=== PATIENT | male | born 1960 ===

== ENCOUNTER 2022-11-08 07:37 | Outpatient (REF) | payer BC, OTHER, SELFPAY ==
[2022-11-08 07:51] LABS: Hematocrit 43.6 % (42.0-52.0); Hemoglobin 14.7 g/dl (14.0-18.0); Mean Corpuscular HGB Conc 33.7 g/dl (31.0-36.0); Mean Corpuscular Hemoglobin 29.5 pg (27.0-33.0); Mean Corpuscular Volume 87.4 fL (80.0-98.0); Mean Platelet Volume 9.1 fL (9.4-12.4); Platelet Count 190 X10*3/uL (160-400); Red Blood Count 4.99 X10*6/uL (4.60-5.80); Red Cell Distribution Width 13.2 % (11.0-16.0); White Blood Count 6.3 X10*3/uL (4.8-10.8)
[2022-11-08 08:26] LABS: Alanine Aminotransferase 23 U/L (0-40); Albumin Level 4.3 g/dL (3.5-5.0); Alkaline Phosphatase 76 U/L (39-117); Anion Gap 11 (12-20); Aspartate Amino Transferase 18 U/L (5-37); Bilirubin Direct 0.2 mg/dL (0.0-0.5); Bilirubin Total 0.8 mg/dL (0.0-1.0); Blood Urea Nitrogen 17 mg/dL (9-16); Calcium 9.4 mg/dL (8.4-10.2); Carbon Dioxide 26 mmol/L (22-29); Chloride 109 mmol/L (96-108); Cholesterol 186 mg/dL; Estimated Glomerular Filt Rate > 60; Glucose Random 118 mg/dL (60-115); HDL Cholesterol 44 mg/dL; LDL Cholesterol Calculated 115 mg/dl; Potassium 5.4 mmol/L (3.3-5.1); Sodium 141 mmol/L (135-145); Total Protein 6.3 g/dL (6.5-8.0); Triglycerides 138 mg/dL
[2022-11-08 08:43] LABS: Thyroid Stimulating Hormone 0.63 uIU/mL (0.32-4.0)
[2022-11-08 08:52] LABS: Appearance Urine Clear; Color Urine Yellow; Glucose Urine UA Negative (Negative); Leukocyte Esterase Urine Negative (Negative); Nitrite Urine Negative (Negative); PH 5.5 (5.0-9.0); Specific Gravity - Urine 1.015 (1.005-1.025); Urine Blood Negative (Negative); Urine Ketones Negative (Negative); Urine Protein Negative (Neg-Trace)
== END 2022-11-08 07:38 | disposition home or self-care (01) ==
LOC: HO.LAB 07:37
PROVIDERS: PCP Internal Medicine; Visit Provider Internal Medicine
DX: Z00.00 Encounter for general adult medical examination without abnormal findings (principal); I10 Essential (primary) hypertension; E78.01 Familial hypercholesterolemia
CPT/HCPCS: 36415; 80048; 80061; 80076; 81003; 84443; 85027

== ENCOUNTER 2023-06-05 09:02 | Outpatient (AMB) | payer BC, OTHER, SELFPAY ==
--- NOTE | 2023-06-05 09:07 | MHC.PC.OV ---
Vital Signs 06/05/23 09:09 Height 5 ft 8 in Weight 226 lb 4 oz BMI 34.4 BP 130/80 Blood Pressure Location Lt brachial Position Sitting Pulse 77 Pulse Source Pulse Oximeter Pulse Oximetry (%) 95 Oxygen Delivery Method Room Air Intake Visit Reasons: 6mth f/u Intake Note: Patient is here to follow up on HTN, Hypercholesterolemia. Press Catcher Required: No Cloth Shearing Supervisor: Not Required per policy Accompanied by: Self / Same As Patient Allergies No Known Allergies [No Known Allergies*] Allergy (Verified 06/08/23 11:56) Medication List - Last Reconciled 06/08/23 by Jorge Yung MD lisinopril 20 mg PO DAILY simvastatin 20 mg PO DAILY Tobacco use date assessed: 06/05/23 Fall risk assessment: No Falls in past year Last assessed Fall Risk: 06/05/23 Dental Screening Dental Screen Date: 06/05/23 Did you have a dental visit in the last 12 months?: Yes Did you have a dental problem in the last 6 months where you did not have access to dental care?: No Was dental information given to patient?: Patient has dentist HPI 6mth f/u HPI Details 62-year-old male presents to the office to discuss his chronic medical conditions. Patient is at baseline state of health. Able to function and do all activities of daily living. Compliant with medications and reporting no side effects. Does not check blood pressures at home [facility] Medical History Familial hypercholesterolemia Essential hypertension Surgical History History of hernia repair Social History Housing: House Alcohol intake: current Alcohol intake frequency: holidays/special occasions only Alcohol type: beer Patient Tobacco Use Status: Former Tobacco user e-Cigarette/Vaping Use: Never Used Second Hand Smoke Exposure: No service: Yes Current occupational status: employed Current occupation: [employer] Cognitive needs: No Hearing needs: No Vision needs: Yes (Glasses) Questionnaire Thrive Questionnaire Date Thrive assessed: 11/07/22 TAY-7 AMB Questionnaire TAY-7 Date TAY - 7 assessed: 11/07/22 Source: Developed by Drs. Juarez Ureña, Brina Shi, Edwin Bob and colleagues, with an educational emmy from [employer]. Physical exam (Primary Care) Vital Signs: Last Vital Signs Pulse 77 06/05/23 09:09 BP 130/80 06/05/23 09:09 Pulse Ox 95 06/05/23 09:09 Oxygen Delivery Method Room Air 06/05/23 09:09 Care Plan Goal for BP management: Blood pressure is in range. Continue current medications BMI result Body Mass Index 34.4 Tobacco/Smoking Status: Tobacco use Status Tobacco use date assessed 06/05/23 06/05/23 09:13 Patient Tobacco Use Status Former Tobacco user 06/05/23 09:13 e-Cigarette/Vaping Use Never Used 06/05/23 09:13 Thrive Assessment: Date of Thrive Assessment Date Thrive assessed 11/07/22 06/05/23 09:13 Const General: cooperative and healthy appearing Nutritional Appearance: well nourished Orientation/consciousness: patient oriented x3 Limitations: no limitations HENMT Head: Yes normal to inspection Eyes General: appearance normal, both eyes and all related structures Neck Neck: Yes normal visual inspection Chest Chest palpation & inspection: normal palpation of entire chest wall Resp Effort & Inspection: normal respiratory effort Neuro General: patient oriented x3 Assessment and Plan Assessment & Plan (1) Familial hypercholesterolemia: Code(s): E78.01 - Familial hypercholesterolemia Plan: Blood work ordered. Continue medications at same dosage (2) Essential hypertension: Code(s): I10 - Essential (primary) hypertension Plan: Continue medications at same dosage. Compliant with diet and exercise urged. Orders: Orders Basic Metabolic Panel 06/05/23 E78.01 - Familial hypercholesterolemia, I10 - Essential (primary) hypertension Liver Panel 06/05/23 E78.01 - Familial hypercholesterolemia, I10 - Essential (primary) hypertension Complete Blood Count no Diff 06/05/23 E78.01 - Familial hypercholesterolemia, I10 - Essential (primary) hypertension Lipid Panel 06/05/23 E78.01 - Familial hypercholesterolemia, I10 - Essential (primary) hypertension Thyroid Stimulating Hormone 06/05/23 E78.01 - Familial hypercholesterolemia, I10 - Essential (primary) hypertension Erythrocyte Sedimentation Rate 06/05/23 E78.01 - Familial hypercholesterolemia, I10 - Essential (primary) hypertension Coding Level of Care Code Est Pt Level 4 (91382) Diagnoses Familial hypercholesterolemia E78.01 Essential hypertension I10
[2023-06-05 09:09] VITALS: BP 130/80; PULSE 77; O2SAT 95; BMI 34.4
== END 2023-06-05 10:03 | disposition home or self-care (01) ==
PROVIDERS: Visit Provider Internal Medicine
DX: E78.01 Familial hypercholesterolemia (principal); I10 Essential (primary) hypertension
CPT/HCPCS: 99214

== ENCOUNTER 2023-11-13 07:12 | Outpatient (REF) | payer MEDICARE, BC, OTHER, SELFPAY ==
[2023-11-13 08:09] LABS: Hematocrit 46.5 % (42.0-52.0); Mean Corpuscular HGB Conc 34.4 g/dl (31.0-36.0); Mean Corpuscular Hemoglobin 29.9 pg (27.0-33.0); Mean Corpuscular Volume 86.8 fL (80.0-98.0); Mean Platelet Volume 9.1 fL (9.4-12.4); Platelet Count 183 X10*3/uL (160-400); Red Blood Count 5.36 X10*6/uL (4.60-5.80); Red Cell Distribution Width 13.4 % (11.0-16.0); White Blood Count 6.5 X10*3/uL (4.8-10.8)
[2023-11-13 08:36] LABS: Alanine Aminotransferase 20 U/L (0-40); Albumin Level 4.5 g/dL (3.5-5.0); Alkaline Phosphatase 86 U/L (39-117); Anion Gap 13 (12-20); Aspartate Amino Transferase 17 U/L (5-37); Bilirubin Direct 0.2 mg/dL (0.0-0.5); Bilirubin Total 0.5 mg/dL (0.0-1.0); Blood Urea Nitrogen 15 mg/dL (9-16); Calcium 9.5 mg/dL (8.4-10.2); Carbon Dioxide 21 mmol/L (22-29); Chloride 110 mmol/L (96-108); Cholesterol 214 mg/dL (<200); Estimated Glomerular Filt Rate > 60; Glucose Random 130 mg/dL (60-115); HDL Cholesterol 47 mg/dL (>40); LDL Cholesterol Calculated 140 mg/dL (<100); Potassium 4.7 mmol/L (3.3-5.1); Sodium 139 mmol/L (135-145); Total Protein 7.2 g/dL (6.5-8.0); Triglycerides 139 mg/dL (<150)
[2023-11-13 08:56] LABS: Thyroid Stimulating Hormone 0.73 uIU/mL (0.32-4.0)
[2023-11-13 09:04] LABS: Erythrocyte Sedimentation Rate 5 MM/HR (0-15)
== END 2023-11-13 07:13 | disposition home or self-care (01) ==
LOC: HO.LAB 07:12
PROVIDERS: PCP Internal Medicine; Visit Provider Internal Medicine
DX: E78.01 Familial hypercholesterolemia (principal); I10 Essential (primary) hypertension
CPT/HCPCS: 36415; 80048; 80061; 80076; 84443; 85027; 85652

== ENCOUNTER 2023-11-13 10:22 | Outpatient (AMB) | payer MEDICARE, BC, OTHER, SELFPAY ==
--- NOTE | 2023-11-13 10:39 | A.OFFPC_ITS ---
Vital Signs 11/13/23 10:48 Height 5 ft 8 in Weight 225 lb 4 oz BMI 34.2 BP 100/62 Blood Pressure Location Lt brachial Position Sitting Pulse 67 Pulse Source Pulse Oximeter Pulse Oximetry (%) 94 Oxygen Delivery Method Room Air Intake Visit Reasons: Annual exam Intake Note: Patient is here today for a physical. Set Up Inspector Required: No Ware Cleaner: Not Required per policy Accompanied by: Self / Same As Patient Allergies No Known Allergies [No Known Allergies*] Allergy (Verified 11/15/23 17:45) Medication List - Last Reconciled 11/15/23 by Jorge Yung MD lisinopril 20 mg PO DAILY simvastatin 20 mg PO DAILY Tobacco use date assessed: 11/13/23 Fall risk assessment: No Falls in past year Last assessed Fall Risk: 11/13/23 Dental Screening Dental Screen Date: 11/13/23 Did you have a dental visit in the last 12 months?: Yes Did you have a dental problem in the last 6 months where you did not have access to dental care?: No Was dental information given to patient?: Patient has dentist HPI Annual exam HPI Details 63-year-old male presents to the office requesting an annual physical. [facility] Medical History Familial hypercholesterolemia Essential hypertension Surgical History History of tooth extraction History of hernia repair Social History Housing: House Alcohol intake: current Alcohol intake frequency: holidays/special occasions only Alcohol type: beer Patient Tobacco Use Status: Former Tobacco user e-Cigarette/Vaping Use: Never Used Second Hand Smoke Exposure: No service: Yes Current occupational status: disabled Current occupation: [employer] Cognitive needs: No Hearing needs: No Vision needs: Yes (Glasses) Questionnaire PHQ-9 Over the last 2 weeks, how often have you been bothered by any of the following problems? 1. Little interest or pleasure in doing things: not at all 2. Feeling down, depressed, or hopeless: not at all 3. Trouble falling or staying asleep, or sleeping too much: not at all 4. Feeling tired or having little energy: not at all 5. Poor appetite or overeating: not at all 6. Feeling bad about yourself - or that you are a failure or have let yourself or your family down: not at all 7. Trouble concentrating on things, such as reading the newspaper or watching television: not at all 8. Moving or speaking so slowly that other people could have noticed. Or the opposite - being so fidgety or restless that you have been moving around a lot more than usual: not at all 9. Thoughts that you would be better off or of hurting yourself in some way: not at all Total score: 0 Depression Screening Interpretation: Negative Depression Screening Done: Yes Source: Developed by Drs. Juarez Ureña, Brina Shi, Edwin Bob and colleagues, with an educational emmy from [employer]. Thrive Questionnaire Date Thrive assessed: 11/13/23 I am a: Patient What is your living situation today?: I have a steady place to live Within the past 12 months, did the food you bought not last and you didn't have the money to get more?: Never true Within the past 12 months, did you worry whether your food would run out before you got money to buy more?: Never true Do you have trouble paying for medicines?: No Do you have trouble getting transportation to medical appointments?: No Do you have trouble paying your heating and electricity bill?: No Do you have trouble taking care of your child, family member or friend?: No Do you have trouble with day-to-day activities such as bathing, preparing meals, shopping, managing finances, etc.?: No Are you currently unemployed and looking for a job?: No Are you interested in more education?: No Currently or been in a relationship where the following occur: no concerns reported THRIVE Score: 0 AUDIT C Alcohol Use Questionnaire (AUDIT-C) 1. How often do you have a drink containing alcohol?: Monthly or less 2. How many drinks containing alcohol do you have on a typical day when you are drinking?: 1 or 2 Total Score: 1 TAY-7 AMB Questionnaire TAY-7 Date TAY - 7 assessed: 11/13/23 Feeling nervous, anxious, or on edge: 0 = Not at all Not being able to stop or control worryin = Not at all Worrying too much about different things: 0 = Not at all Trouble relaxin = Not at all Being so restless that it is hard to sit still: 0 = Not at all Becoming easily annoyed or irritable: 0 = Not at all Feeling afraid as if something awful might happen: 0 = Not at all Total TAY-7 score (0-4 normal; 5-9 mild; 10-14 moderate; 15-21 severe): 0 Source: Developed by Drs. Juarez Ureña, Brina Shi, Edwin Bob and colleagues, with an educational emmy from [employer]. Physical exam (Primary Care) Vital Signs: Last Vital Signs Pulse 67 11/13/23 10:48 BP 100/62 11/13/23 10:48 Pulse Ox 94 11/13/23 10:48 Oxygen Delivery Method Room Air 11/13/23 10:48 Care Plan Goal for BP management: Blood pressure is in range. Continue current medications BMI result Body Mass Index 34.2 BMI Assessment/Plan discussion: High (1 lb per week weight loss suggested) BMI High, discussed plan: lifestyle, weight reduction, dietary and physical activity Tobacco/Smoking Status: Tobacco use Status Tobacco use date assessed 11/13/23 11/13/23 10:45 Patient Tobacco Use Status Former Tobacco user 11/13/23 10:39 e-Cigarette/Vaping Use Never Used 11/13/23 10:39 PHQ-9: PHQ-9 Score PHQ-9: Total score 0 11/13/23 10:48 Depression Screening Interpretation: Negative Thrive Assessment: Date of Thrive Assessment Date Thrive assessed 11/13/23 11/13/23 10:48 Currently or been in a relationship where the following occur: no concerns reported Advance Care Planning discussion: Exists, not on file Date of discussion: 11/13/23 Who was present: Patient Forms completed: Health Care Proxy and [facility] Actual minutes spent: 5 Const General: cooperative and healthy appearing Nutritional Appearance: well nourished Orientation/consciousness: patient oriented x3 Limitations: no limitations HENMT Head: Yes normal to inspection Eyes General: appearance normal, both eyes and all related structures Neck Neck: Yes normal visual inspection Chest Chest palpation & inspection: normal palpation of entire chest wall Resp Effort & Inspection: normal respiratory effort Neuro General: patient oriented x3 Assessment and Plan Assessment & Plan (1) Annual physical exam: Code(s): Z00.00 - Encounter for general adult medical examination without abnormal findi ngs (2) Familial hypercholesterolemia: Code(s): E78.01 - Familial hypercholesterolemia Plan: Blood work is in range. Continue medications at same dosage (3) Essential hypertension: Code(s): I10 - Essential (primary) hypertension Plan: Blood pressure is in range. Continue medications at same dosage Coding Level of Care Code New Pt Prev Care >65yr (88464) Diagnoses Annual physical exam Z00.00 Familial hypercholesterolemia E78.01 Essential hypertension I10 Additional Codes Vital Signs *Quality* - Advance Care Planning discussion: Exists, not on file ([id number])
[2023-11-13 10:48] VITALS: BP 100/62; PULSE 67; O2SAT 94; BMI 34.2
== END 2023-11-13 11:57 | disposition home or self-care (01) ==
PROVIDERS: PCP Internal Medicine; Visit Provider Internal Medicine
DX: Z00.00 Encounter for general adult medical examination without abnormal findings (principal); E78.01 Familial hypercholesterolemia; I10 Essential (primary) hypertension
CPT/HCPCS: 1123F; 99397

== ENCOUNTER 2024-01-14 09:18 | Day surgery (SDC) | payer MEDICARE, BC, OTHER, SELFPAY ==
[2024-01-12 13:34] VITALS: BMI 33.2
--- NOTE | 2024-01-13 10:18 | P.CONAN_ITS ---
Documented by User: Theresa Harris NP 01/13/24 10:19 HPI - Anesthesia Eval Consult details Narrative: 63yo M for Colonoscopy [facility] Active Problems Active Problems: All Active Problems Annual physical exam (Acute) Familial hypercholesterolemia (Acute) Essential hypertension (Acute) Past Medical History Medical History (Updated 01/12/24 @ 13:35 by Alexa Tan RN) Renal calculi Familial hypercholesterolemia Essential hypertension Surgical History Surgical History (Updated 01/12/24 @ 13:35 by Alexa Tan RN) H/O colonoscopy History of tooth extraction History of hernia repair Social History Social History Housing: House Alcohol intake: current Alcohol intake frequency: holidays/special occasions only Alcohol type: beer Patient Tobacco Use Status: Former Tobacco user e-Cigarette/Vaping Use: Never Used Second Hand Smoke Exposure: No Use of substances other than those prescribed or required for medical reasons: Yes Are you DNR?: No Advance Directives: No Advance Directives Information Provided: Yes service: Yes Current occupational status: disabled Current occupation: [employer] service Cognitive needs: No Hearing needs: No Vision needs: Yes (Glasses) Meds Allergies Allergy/AdvReac Type Severity Reaction Status Date / Time No Known Allergies Allergy Verified 11/15/23 17:45 [No Known Allergies*] Exam Height,Weight and Vital Signs: Height 5 ft 8.25 in Weight 99.79 kg Assessment and Plan Assessment Anesthesia Assessment: Chart Reviewed Documented by User: Sher Sin MD 01/14/24 10:10 [facility] Past Medical History Medical History (Updated 01/12/24 @ 13:35 by Alexa Tan RN) Renal calculi Familial hypercholesterolemia Essential hypertension Family History Family history of problems with anesthesia: No Surgical History Surgical History (Updated 01/12/24 @ 13:35 by Alexa Tan RN) H/O colonoscopy History of tooth extraction History of hernia repair History of Problems with Anesthesia: No Social History Social History Housing: House Alcohol intake: current Alcohol intake frequency: holidays/special occasions only Alcohol type: beer Patient Tobacco Use Status: Former Tobacco user e-Cigarette/Vaping Use: Never Used Second Hand Smoke Exposure: No Use of substances other than those prescribed or required for medical reasons: Yes Are you DNR?: No Advance Directives: No Advance Directives Information Provided: Yes service: Yes Current occupational status: disabled Current occupation: [employer] service Cognitive needs: No Hearing needs: No Vision needs: Yes (Glasses) Meds Allergies Allergy/AdvReac Type Severity Reaction Status Date / Time No Known Allergies Allergy Verified 11/15/23 17:45 [No Known Allergies*] Exam Airway Mallampati Class: II TM Dist: >3cm Neck ROM: Full Assessment and Plan Assessment Anesthesia Assessment: Anesthesia Plan Discussed Final Anesthetic Review Family History of Problems with Anesthesia: No History of Problems with Anesthesia: No NPO: Yes ASA Class: II Final Preanesthetic Review: No Changes in Pt Med Stat, Meds/Allgs Chart Reviewed, Consent Obtained/Reviewed and Anes Risks/Benef Reviewed Patient Risk: Low Procedure Risk: Low Anesthetic Plan Anesthetic Plan: TIVA Disposition: Standard PACU
[2024-01-14 09:43] VITALS: BMI 30.6
[2024-01-14 09:48] VITALS: BP 119/74; PULSE 60; RESP 16; TEMP 36.1; O2SAT 94
[2024-01-14] MEDS: Lactated Ringers 1,000 ML 100 ML IVCONT (10:12)
[2024-01-14 11:16] VITALS: BP 100/61; PULSE 69; RESP 16; TEMP 36.1; O2SAT 97
--- NOTE | 2024-01-14 11:17 | P.BOP_ITS ---
Brief Operative Note Date of Service: 01/14/24 Pre-op diagnosis: Screening Post-op diagnosis: other (Colon polyps) Procedure: Colonoscopy to the cecum and TI with bx/removal of polyps Surgeon: Juarez Guerrero MD Anesthesia: MAC Was an Supervisor Tank House used for this Procedure?: No Estimated blood loss (mL): 2.0 Pathology: other (A. Polyps at 20cm B. Polyp at 15cm) Condition: stable Disposition: PACU
[2024-01-14 11:29] VITALS: BP 120/75; PULSE 57; RESP 16; TEMP 36.2; O2SAT 97
--- NOTE | 2024-01-14 11:45 | OP_ITS ---
DATE OF SERVICE: 01/14/2024 SURGEON: Juarez Guerrero MD INDICATIONS: The patient presents for evaluation of personal history of tubular adenoma of the colon, family history of colon cancer, and colorectal cancer screening. Full consent has been obtained from him for this, including risks of bleeding and perforation. PREOPERATIVE DIAGNOSIS: POSTOPERATIVE DIAGNOSIS: PROCEDURE PERFORMED: Colonoscopy to cecum and terminal ileum with biopsy and removal of polyps. ESTIMATED BLOOD LOSS: COMPLICATIONS: ANESTHESIA: Monitored anesthesia care. ASSISTANTS: SPECIMENS: PREOPERATIVE DIAGNOSES: Family history colon cancer, personal history of tubular adenoma of the colon, and colorectal cancer screening. POSTOPERATIVE DIAGNOSES: Family history colon cancer, personal history of tubular adenoma of the colon, colorectal cancer screening, small colon polyps, diverticulosis, and internal hemorrhoids. DESCRIPTION OF PROCEDURE: The patient was placed in the left lateral decubitus position. The digital rectal exam revealed no abnormalities. The Olympus video pediatric colonoscope was then entered into the rectum and advanced easily to the cecum. Once in the cecum, I did identify normal-appearing cecal pouch with appendiceal orifice and a normal-appearing ileocecal valve. The terminal ileum was cannulated and appeared normal. The scope was withdrawn back in the colon. The entire cecum and ileocecal valve appeared normal. The scope was slowly withdrawn assessing all mucosal surfaces carefully. Preparation was excellent. At 20 cm, were 2 flat, less than 5 mm polyps, which were each biopsied and completely removed with the cold biopsy forceps. At 15 cm, was another similar polyps, which was biopsied and completely removed with the cold biopsy forceps. I did not visualize any other polyps, colitis, nor angiodysplasias. There was a mild amount of sigmoid diverticulosis. In the rectum, scope was retroflexed, visualizing internal hemorrhoids, but no other pathology. The rectal mucosa appeared normal. Scope was straightened and withdrawn from the patient. He tolerated the procedure well and was returned to the recovery area in stable condition. IMPRESSION: 1. Colon polyps. 2. Diverticulosis. 3. Internal hemorrhoids. PLAN: The results of the pathology will be checked. I would recommend a repeat colonoscopy in 5 years. He will, otherwise, see me on a p.r.n. basis. Juarez Guerrero MD RMW/YAIMAL / [id number]
--- NOTE | 2024-01-15 06:41 | PC.NURSE ---
24hr update documented on paper chart
== END 2024-01-14 11:52 | disposition home or self-care (01) ==
PROVIDERS: PCP Internal Medicine; Visit Provider Internal Medicine
PROC: 0DJD8ZZ Inspection of Lower Intestinal Tract, Via Natural or Artificial Opening Endoscopic (ICD-10-PCS; CPT 45378; principal; 2024-01-14 10:30)
DX: Z12.11 Encounter for screening for malignant neoplasm of colon (principal); K63.5 Polyp of colon; K57.30 Diverticulosis of large intestine without perforation or abscess without bleeding; K64.8 Other hemorrhoids; Z86.010 Personal history of colon polyps; Z80.0 Family history of malignant neoplasm of digestive organs; I10 Essential (primary) hypertension; Z79.899 Other long term (current) drug therapy
CPT/HCPCS: 45380; 88305; J2704

== ENCOUNTER 2024-05-26 10:06 | Outpatient (AMB) | payer MEDICARE, BC, OTHER, SELFPAY ==
--- NOTE | 2024-05-26 10:07 | MHC.PC.OV ---
Vital Signs 05/26/24 10:08 Height 5 ft 9 in Weight 225 lb 8 oz BMI 33.3 BP 100/76 Blood Pressure Location Lt brachial Position Sitting Pulse 70 Pulse Source Pulse Oximeter Pulse Oximetry (%) 93 Oxygen Delivery Method Room Air Intake Visit Reasons: 6mof\u Intake Note: Patient is here to follow up on HTN, Hypercholesterolemia. Direct Care Staffer Required: No Line Maintenance Supervisor: Not Required per policy Accompanied by: Self / Same As Patient Allergies No Known Allergies [No Known Allergies*] Allergy (Verified 05/26/24 10:08) Tobacco use date assessed: 05/26/24 Fall risk assessment: No Falls in past year Last assessed Fall Risk: 05/26/24 Dental Screening Dental Screen Date: 11/13/23 HPI 6mof\u HPI Details 63-year-old male presents to the office to discuss his chronic medical conditions. Patient is compliant with medications and reporting no side effects. Able to function and do all activities of daily living. Not exercising or following any specific diet. Has received his flu vaccination. [facility] Medical History Renal calculi Familial hypercholesterolemia Essential hypertension Surgical History (Updated 05/26/24 @ 10:31 by Jorge Yung MD) H/O colonoscopy (~06/10/18) History of tooth extraction History of hernia repair Social History Housing: House Alcohol intake: current Alcohol intake frequency: holidays/special occasions only Alcohol type: beer Patient Tobacco Use Status: Former Tobacco user e-Cigarette/Vaping Use: Never Used Second Hand Smoke Exposure: No service: Yes Current occupational status: disabled Current occupation: [employer] service Cognitive needs: No Hearing needs: No Vision needs: Yes (Glasses) Questionnaire Thrive Questionnaire Date Thrive assessed: 11/13/23 TAY-7 AMB Questionnaire TAY-7 Date TAY - 7 assessed: 11/13/23 Source: Developed by Drs. Juarez Ureña, Brina Shi, Edwin Bob and colleagues, with an educational emmy from [employer]. Physical exam (Primary Care) Vital Signs: Last Vital Signs Pulse 70 05/26/24 10:08 BP 100/76 05/26/24 10:08 Pulse Ox 93 05/26/24 10:08 Oxygen Delivery Method Room Air 05/26/24 10:08 BMI result Body Mass Index 33.3 BMI Assessment/Plan discussion: High BMI High, discussed plan: lifestyle and weight reduction Tobacco/Smoking Status: Tobacco use Status Tobacco use date assessed 05/26/24 05/26/24 10:15 Patient Tobacco Use Status Former Tobacco user 05/26/24 10:15 e-Cigarette/Vaping Use Never Used 05/26/24 10:15 Thrive Assessment: Date of Thrive Assessment Date Thrive assessed 11/13/23 05/26/24 10:15 Const General: cooperative and healthy appearing Nutritional Appearance: well nourished Orientation/consciousness: patient oriented x3 Limitations: no limitations HENMT Head: Yes normal to inspection Eyes General: appearance normal, both eyes and all related structures Neck Neck: Yes normal visual inspection Chest Chest palpation & inspection: normal palpation of entire chest wall Resp Effort & Inspection: normal respiratory effort Neuro General: patient oriented x3 Office Procedures Flu Questionnaire Does the patient have a severe egg allergy?: No Does the patient have severe life threatening allergies?: No Does the patient have a fever or illness today?: No Has the patient ever had Guillain-[place] Syndrome?: No Has the patient ever had any past reaction to a flu shot?: No Results AMB Hemoglobin A1c AMB Hemoglobin A1c 5.9 % Last Edit by ERNST Graf on 05/26/24 10:25 Immunizations Fluarix Triv [id number] (PF) 45 mcg (15 mcg x 3)/0.5 mL IM syringe Performing Provider: Jorge Yung MD [facility] Administered by: Erica Juares LPN on 05/26/24 10:30 Dose Route Admin Location Dispensed Lot Number Expiration Date NDC Dialysis Chief Equipment Technician 0.5 mL IM Left Deltoid 0.5 mL [id number] 01/31/25 [id number] [employer] VIS Given Date VIS Provided VIS Publication Date 05/26/24 Single Vaccine 21 Eligibility Eligibility Date Funding Source Not [facility] Eligible 05/26/24 Private Results Reviewed Results Reviewed: Laboratory Last Values Hgb A1c (Clinic) 5.9 % (4.0-6.0) 10/23/24 10:07 Coding Level of Care Code Est Pt Level 4 (13310) Complex EM visit Add On G2211 Diagnoses Familial hypercholesterolemia E78.01 Essential hypertension I10 Assessment & Plan Assessment & Plan (1) Familial hypercholesterolemia: Code(s): E78.01 - Familial hypercholesterolemia Category: Medical Plan: Blood work has been ordered. Will call with results. Continue cholesterol medications at same dosage. Counseling on the importance of diet and exercise done. (2) Essential hypertension: Code(s): I10 - Essential (primary) hypertension Category: Medical Plan: Blood pressure is in range. Continue medications at same dosage. Counseling on the importance of diet and exercise done. Orders: Orders Influenza [id number] Immunization Today Z23 - Encounter for immunization AMB Hemoglobin A1c Today Z13.9 - Encounter for screening, unspecified
[2024-05-26 10:08] VITALS: BP 100/76; PULSE 70; O2SAT 93; BMI 33.3
== END 2024-05-26 10:30 | disposition home or self-care (01) ==
PROVIDERS: PCP Internal Medicine; Visit Provider Internal Medicine
DX: E78.01 Familial hypercholesterolemia (principal); I10 Essential (primary) hypertension; Z23 Encounter for immunization; Z13.9 Encounter for screening, unspecified

== ENCOUNTER → 2024-05-26 10:06 | Outpatient (BNVA) | payer MEDICARE, BC, OTHER, SELFPAY | PROVIDERS: PCP Internal Medicine; Visit Provider Internal Medicine | DX: E78.01 Familial hypercholesterolemia (principal); I10 Essential (primary) hypertension; Z79.899 Other long term (current) drug therapy; Z23 Encounter for immunization | CPT/HCPCS: 83036; 90471; 90656; 99212 ==

== ENCOUNTER 2025-02-17 13:20 | Outpatient (AMB) | payer MEDICARE, BC, OTHER, SELFPAY ==
--- NOTE | 2025-02-17 13:23 | A.OFFPC_ITS ---
Vital Signs 02/17/25 13:25 Height 5 ft 9 in Weight 223 lb BMI 32.9 BP 130/60 Blood Pressure Location Lt brachial Position Sitting Pulse 70 Pulse Source Pulse Oximeter Temp 97.3 F Temp Source Temporal Artery Scan Pulse Oximetry (%) 93 Oxygen Delivery Method Room Air Intake Visit Reasons: follow up Intake Note: Patient is here to follow up on HTN, Hypoercholesterolemia Rac Specialist Required: No Plumber Supervisor: Not Required per policy Accompanied by: Self / Same As Patient Allergies No Known Allergies (No Known Allergies*) Allergy (Verified 02/17/25 13:25) Tobacco use date assessed: 02/17/25 Fall risk assessment: No Falls in past year Last assessed Fall Risk: 02/17/25 Dental Screening Dental Screen Date: 02/17/25 Did you have a dental visit in the last 12 months?: Yes Did you have a dental problem in the last 6 months where you did not have access to dental care?: No Was dental information given to patient?: Patient has dentist [facility] Medical History Renal calculi Familial hypercholesterolemia Essential hypertension Surgical History (Updated 02/17/25 @ 13:50 by Jorge Yung MD) H/O colonoscopy (~01/14/24) History of tooth extraction History of hernia repair Social History Housing: House Alcohol intake: current Alcohol intake frequency: holidays/special occasions only Alcohol type: beer Patient Tobacco Use Status: Former Tobacco user e-Cigarette/Vaping Use: Never Used Second Hand Smoke Exposure: Yes service: Yes Current occupational status: disabled Current occupation: [employer] service Cognitive needs: No Hearing needs: No Vision needs: Yes (Glasses) Questionnaire PHQ-9 Over the last 2 weeks, how often have you been bothered by any of the following problems? 1. Little interest or pleasure in doing things: not at all 2. Feeling down, depressed, or hopeless: not at all 3. Trouble falling or staying asleep, or sleeping too much: not at all 4. Feeling tired or having little energy: not at all 5. Poor appetite or overeating: not at all 6. Feeling bad about yourself - or that you are a failure or have let yourself or your family down: not at all 7. Trouble concentrating on things, such as reading the newspaper or watching television: not at all 8. Moving or speaking so slowly that other people could have noticed. Or the opposite - being so fidgety or restless that you have been moving around a lot more than usual: not at all 9. Thoughts that you would be better off or of hurting yourself in some way: not at all Total score: 0 Depression Screening Interpretation: Negative Depression Screening Done: Yes Source: Developed by Drs. Juarez Ureña, Brina Shi, Edwin Bob and colleagues, with an educational emmy from [employer]. Thrive Questionnaire Date Thrive assessed: 02/17/25 I am a: Patient What is your living situation today?: I have a steady place to live Within the past 12 months, did the food you bought not last and you didn't have the money to get more?: Never true Within the past 12 months, did you worry whether your food would run out before you got money to buy more?: Never true Do you have trouble paying for medicines?: No Do you have trouble getting transportation to medical appointments?: No Do you have trouble paying your heating and electricity bill?: No Do you have trouble taking care of your child, family member or friend?: No Do you have trouble with day-to-day activities such as bathing, preparing meals, shopping, managing finances, etc.?: No Are you currently unemployed and looking for a job?: No Are you interested in more education?: No Please select the resources that you would like help with: None Currently or been in a relationship where the following occur: No concerns reported THRIVE Score: 0 AUDIT C Alcohol Use Questionnaire (AUDIT-C) 1. How often do you have a drink containing alcohol?: Monthly or less 2. How many drinks containing alcohol do you have on a typical day when you are drinking?: 1 or 2 Total Score: 1 TAY-7 AMB Questionnaire TAY-7 Date TAY - 7 assessed: 02/17/25 Feeling nervous, anxious, or on edge: 0 = Not at all Not being able to stop or control worryin = Not at all Worrying too much about different things: 0 = Not at all Trouble relaxin = Not at all Being so restless that it is hard to sit still: 0 = Not at all Becoming easily annoyed or irritable: 0 = Not at all Feeling afraid as if something awful might happen: 0 = Not at all Total TAY-7 score (0-4 normal; 5-9 mild; 10-14 moderate; 15-21 severe): 0 Source: Developed by Drs. Juarez Ureña, Brina Shi, Edwin Bob and colleagues, with an educational emmy from [employer]. Physical exam (Primary Care) Vital Signs: Last Vital Signs Temp 97.3 F 02/17/25 13:25 Pulse 70 02/17/25 13:25 BP 130/60 02/17/25 13:25 Pulse Ox 93 02/17/25 13:25 Oxygen Delivery Method Room Air 02/17/25 13:25 BMI result Body Mass Index 32.9 BMI Assessment/Plan discussion: High Tobacco/Smoking Status: Tobacco use Status Tobacco use date assessed 02/17/25 02/17/25 13:29 Patient Tobacco Use Status Former Tobacco user 02/17/25 13:29 e-Cigarette/Vaping Use Never Used 02/17/25 13:29 PHQ-9: PHQ-9 Score PHQ-9: Total score 0 02/17/25 13:29 Depression Screening Interpretation: Negative Thrive Assessment: Date of Thrive Assessment Date Thrive assessed 02/17/25 02/17/25 13:29 Currently or been in a relationship where the following occur: No concerns reported Coding Level of Care Code Est Pt Level 4 (47481) Complex EM visit Add On G2211 Diagnoses Essential hypertension I10 Familial hypercholesterolemia E78.01 Assessment & Plan Assessment & Plan (1) Essential hypertension: Code(s): I10 - Essential (primary) hypertension Category: Medical Plan: BW ordered. Continue meds (2) Familial hypercholesterolemia: Code(s): E78.01 - Familial hypercholesterolemia Category: Medical Plan: BW ordered. Will adjust meds accordingly Plan History of Present Illness - The patient is a 64-year-old male presenting with a wellness check and discussion of preventative care measures. - Colonoscopy was performed within the past year by Dr. Guerrero. - Blood work has not been done for a significant period and is now due. - The patient reports that an eye examination was conducted about a year ago, and it is time for another. Social History - The patient recently returned from [place], where he has limited cell service. Review of Systems - Ophthalmologic: Denies halos around lights, reports need for eye examination. - Auditory: Reports hearing is adequate, but difficulty hearing from another room. - Genitourinary: Denies nocturia, reports frequent urination. Physical Exam General: Cooperative and healthy appearing Nutritional Appearance: Well nourished Orientation/consciousness: Patient oriented x3 Limitations: No limitations Head: Normal to inspection General: Appearance normal, both eyes and all related structures Neck: Normal visual inspection Chest: Normal palpation of entire chest wall Respiratory: Patient instructed to take a deep breath; no pain reported. ormal respiratory effort Neurology: Patient oriented x3; hearing is okay, able to have conversations at home without problems, listens to music, and sleeps well at night. Results Plan 1. Preventative Care: Colonoscopy - Colonoscopy was performed within the past year, no immediate follow-up required. 2. Preventative Care: Blood Work - Blood work is due and should be performed after fasting. 3. Preventative Care: Eye Examination - Eye examination is due and should be scheduled. Discussion Notes During the visit, we discussed the importance of maintaining regular preventative care, including colonoscopy, blood work, and eye examinations. I advised the patient to schedule fasting blood work and an eye examination. We also reviewed the results of the recent colonoscopy, which did not require immediate follow-up. Patient Instructions - Schedule and complete fasting blood work. - Arrange for an eye examination. - Continue regular preventative care measures.
[2025-02-17 13:25] VITALS: BP 130/60; PULSE 70; TEMP 36.3; O2SAT 93; BMI 32.9
== END 2025-02-17 13:50 | disposition home or self-care (01) ==
LOC: HO.HMCH 13:20
PROVIDERS: PCP Internal Medicine; Visit Provider Internal Medicine
DX: I10 Essential (primary) hypertension (principal); E78.01 Familial hypercholesterolemia

== ENCOUNTER → 2025-02-17 13:20 | Outpatient (BNVA) | payer MEDICARE, BC, OTHER, SELFPAY | PROVIDERS: PCP Internal Medicine; Visit Provider Internal Medicine | DX: I10 Essential (primary) hypertension (principal); E78.01 Familial hypercholesterolemia | CPT/HCPCS: 99212 ==

== ENCOUNTER 2025-02-22 07:11 | Outpatient (REF) | payer MEDICARE, BC, OTHER, SELFPAY ==
--- OUTSIDE RECORDS SUMMARY | 2024-01-14 06:30 | XMS_ITS ---
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5 ; Family history of colon cancer Z80.0 ; Diverticulosis of large intestine without perforation or abscess without bleeding K57.30 and Other hemorrhoids K64.8 Assessments Encounter Date Diagnosis (ICD Code) Assessment Notes Treatment Notes Treatment Clinical Notes Section Notes 01/14/2024 Encounter for screening colonoscopy (ICD-10 - Z12.11) 01/14/2024 Colon polyps (ICD-10 - K63.5) 01/14/2024 Family history of colon cancer (ICD-10 - Z80.0) 01/14/2024 Diverticulosis of large intestine without perforation or abscess without bleeding (ICD-10 - K57.30) 01/14/2024 Other hemorrhoids (ICD-10 - K64.8) Plan Of Treatment No Information Progress Notes * JOHNY GLASGOWDOBrian:1960 (64 yo M)Acc No.[id number]:01/14/2024 COLON WITH MAC Patient: JOHNY OLIVEIRA Provider: Katia Guerrero MD :1960 A ge:63 Y S ex:Male Date:01/14/2024 Address:[address] [place] [address] Pcp:LORENZO KEYS Subjective: * Chief Complaints: * 1 . Screening,hx polyps. * Medical History: Objective: * Vitals: Assessment: * Assessment: 1. E ncounter for screening colonoscopy - Z12.11 (Primary) 2 . C olon polyps - K63.5 3 . F amily history of colon cancer - Z80.0 4 . D iverticulosis of large intestine without perforation or abscess without bleeding - K57.30 5 . O ther hemorrhoids - K64.8 Plan: * Treatment: * Procedure Codes: 4 5380 COLONOSCOPY AND BIOPSY, Modifiers: PT , 0529F INTRVL 3+YRS PTS CLNSCP DOCD, 0528F RCMND FLW-UP 10 YRS DOCD * * The named appointment provid er may or may not be the originator of this progress note, and it is not deemed complete until electronically signed by the appointment provider. Sign off status: Pending * Provider: Katia Guerrero MD Date: 0 01/14/2024 Generated for Blanquita daigle/Paresh/Monalisaitting on: 0 02/22/2025 07:13 AM EDT
[2025-02-22 10:18] LABS: Appearance Urine Turbid; Glucose Urine UA Negative (Negative); PH 5.0 (5.0-9.0); Specific Gravity - Urine 1.015 (1.005-1.025); UMIC TRIGGER UA YES
[2025-02-22 10:28] LABS: Hematocrit 42.2 % (42.0-52.0); Hemoglobin 14.6 g/dl (14.0-18.0); Mean Corpuscular HGB Conc 34.6 g/dl (31.0-36.0); Mean Corpuscular Hemoglobin 30.4 pg (27.0-33.0); Mean Corpuscular Volume 87.9 fL (80.0-98.0); NRBC Abs Auto 0.000 X10*3/uL (0.0-0.012); NRBC Pct Auto 0.0 /100WBC (0.0-0.2); Platelet Count 180 X10*3/uL (160-400); Red Blood Count 4.80 X10*6/uL (4.60-5.80); White Blood Count 5.8 X10*3/uL (4.8-10.8)
[2025-02-22 11:01] LABS: Alanine Aminotransferase 23 U/L (0-40); Albumin Level 4.6 g/dL (3.5-5.0); Alkaline Phosphatase 69 U/L (39-117); Anion Gap 13 (12-20); Aspartate Amino Transferase 22 U/L (5-37); Blood Urea Nitrogen 11 mg/dL (9-16); Calcium 9.1 mg/dL (8.4-10.2); Carbon Dioxide 21 mmol/L (22-29); Chloride 111 mmol/L (96-108); Cholesterol 207 mg/dL (<200); Estimated Glomerular Filt Rate > 60; HDL Cholesterol 46 mg/dL (>40); Potassium 4.3 mmol/L (3.3-5.1); Sodium 141 mmol/L (135-145); Total Protein 6.6 g/dL (6.5-8.0); Triglycerides 152 mg/dL (<150)
[2025-02-22 11:04] LABS: Thyroid Stimulating Hormone 0.76 uIU/mL (0.32-4.0)
== END 2025-02-22 07:12 | disposition home or self-care (01) ==
LOC: HO.HMGCLDS 07:11
PROVIDERS: PCP Internal Medicine; Visit Provider Internal Medicine
DX: I10 Essential (primary) hypertension (principal); E78.01 Familial hypercholesterolemia; Z12.5 Encounter for screening for malignant neoplasm of prostate
CPT/HCPCS: 36415; 80048; 80061; 80076; 81001; 84153; 84443; 85027